=== PATIENT | male | born 1980 | race Two or more races ===

== ENCOUNTER 2017-02-18 19:38 | Emergency (ER) | payer OTHER ==
[~2017-02-18] VITALS: Ht 185.4 cm; Wt 74.8 kg
[2017-02-18 20:02] VITALS: BP 122/66
--- NOTE | 2017-02-18 20:07 | Emergency Room Report ---
History of Present Illness General Chief Complaint: Multiple Trauma/Fall Source: Patient Present Illness HPI The patient is a 36-year-old male presenting for back pain after slipping and falling today at work. He states that he was walking on a ramp, slipped, and fell directly onto his tailbone. This occurred approximately 3 hours prior. Pain is now a 3/10 dull ache and does not radiate. Worse with touch and movement. He denies any numbness or tingling. He denies previous injury to the back. He denies incontinence or difficulty walking. He denies any other injury or symptoms Allergies: Coded Allergies: No Known Allergies (Unverified , 02/18/17) Patient History Past Medical History: see triage record Pertinent Family History: none Reviewed Nursing Documentation: PMH: Agreed, PSxH: Agreed Nursing Documentation-PMH Past Medical History: No Stated History Review of Systems All Other Systems: negative except mentioned in HPI Physical Exam Vital Signs Date Time Temp Pulse Resp B/P (MAP) Pulse Ox O2 Delivery O2 Flow Rate FiO2 02/18/17 19:48 97.9 63 16 122/66 100 Room Air Sp02 EP Interpretation: reviewed, normal General Appearance: no apparent distress, alert, GCS 15, non-toxic Head: normocephalic, atraumatic Eyes: bilateral eye normal inspection, bilateral eye PERRL ENT: hearing grossly normal, normal pharynx, no angioedema, normal voice Musculoskeletal: normal inspection, back normal, gait/station normal, normal range of motion, tender - L lumbar paraspinal muscles Neurologic: alert, oriented x3, responsive, motor strength/tone normal, sensory intact, speech normal Psychiatric: judgement/insight normal, memory normal, mood/affect normal, no suicidal/homicidal ideation Skin: normal color, no rash, warm/dry, well hydrated Medical Decision Making PA Attestation Dr. Tapia is my supervising physician. Patient management was discussed with my supervising physician Diagnostic Impression: Primary Impression: Back contusion Qualified Codes: S20.222A - Contusion of left back wall of thorax, initial encounter Additional Impression: Muscle strain ER Course The patient is a 36-year-old male presenting for back pain after slipping and falling today at work Ddx considered include but not limited to lumbar strain, degenerative disease, epidural abscess, cauda equina syndrome PE: Vitals stable. NAD Normal gait. SILT. There is tenderness to palpation of the left lumbar paraspinal muscles and midline sacrum. No step-offs. No deformity. Full active range of motion is intact X-ray of the lumbar spine and sacrum are both unremarkable The patient is given Motrin and Robaxin and will be discharged home. ER precautions given. He is to follow up with workers compensation Other X-Ray Diagnostic Results Other X-Ray Diagnostic Results #1: X-Ray ordered: L spine # of Views/Limited Vs Complete: 3 View, Limited Indication: Pain EP Interpretation: Yes PA Xray: Interpretation reviewed, by supervising MD, and agrees with findings. Interpretation: no dislocation, no soft tissue swelling, no fractures Impression: No acute disease Electronically Signed by: Bony Bazzi PA-C Other X-Ray Diagnostic Results #2: X-Ray ordered: Sacrum # of Views/Limited Vs Complete: 2 View Indication: Pain EP Interpretation: Yes PA Xray: Interpretation reviewed, by supervising MD, and agrees with findings. Interpretation: no dislocation, no soft tissue swelling, no fractures Impression: No acute disease Electronically Signed by: Bony Bazzi PA-C Last Vital Signs Date Time Temp Pulse Resp B/P (MAP) Pulse Ox O2 Delivery O2 Flow Rate FiO2 02/18/17 20:02 97.8 63 16 122/66 100 Room Air Status: improved Disposition: HOME, SELF-CARE Condition: Improved Scripts Methocarbamol* (ROBAXIN-750*) 750 Mg Tablet 750 MG PO TID, #21 TAB 0 Refills Prov: TERZIAN,BONY P.A. 02/18/17 Ibuprofen* (MOTRIN*) 600 Mg Tablet 600 MG ORAL Q8H Y for For Pain, #30 TAB 0 Refills Prov: TERZIAN,BONY P.A. 02/18/17 TERZIAN,BONY P.A. Feb 18, 2017 20:07
[2017-02-18] MEDS ORDERED: Methocarbamol 750mg tab ORAL ONE (20:15)
[2017-02-18] MEDS ORDERED: ROBAXIN-750750 MG PO (21:14)
[2017-02-18] MEDS ORDERED: IBUPROFEN600 MG ORAL (21:14)
[2017-02-18 21:25] VITALS: BP 120/68
--- NOTE | 2017-02-19 10:05 | Diagnostic Imaging Report ---
Indication: PAIN Technique: 3 views of the lumbar spine Comparison: None Findings:Vertebral body heights are preserved. Disc spaces are preserved. No acute fractures. No dislocations. Pedicles are intact. Sacral arches are preserved. Sacroiliac joint spaces are preserved Impression:No acute process
--- NOTE | 2017-02-19 10:06 | Diagnostic Imaging Report ---
Indication: PAIN Technique: 2 views of the sacrum. Note that a lateral view of the sacrum is included on lumbar spine radiograph performed at same time Comparison: None Findings: No acute fractures. No dislocations. Sacral arches are preserved. Sacroiliac joint spaces are preserved Impression: Negative
== END 2017-02-18 21:28 | disposition home or self-care (01) ==
LOC: EMR 20:11
DX: S30.0XXA Contusion of lower back and pelvis, initial encounter (principal); S39.012A Strain of muscle, fascia and tendon of lower back, initial encounter; W01.0XXA Fall on same level from slipping, tripping and stumbling without subsequent striking against object, initial encounter; Y92.511 Restaurant or cafe as the place of occurrence of the external cause; Y99.0 Civilian activity done for income or pay
CPT/HCPCS: 72020; 72220; 99284